=== PATIENT | female | born 1960 | race African-American/Black ===

== ENCOUNTER 2018-02-02 01:33 | Emergency (ER) | payer MEDICAID ==
[~2018-02-02] VITALS: Ht 157.5 cm; Wt 65.3 kg
[2018-02-02] MEDS ORDERED: ABILIFY20 MG PO (01:37)
[2018-02-02] MEDS ORDERED: [UNRECOGNIZED DRUG - REMARK] (01:38)
[2018-02-02] MEDS ORDERED: TRAZODONE 150150 M1 PO (01:38)
[2018-02-02] MEDS ORDERED: PROVENTIL HFA6.7 G1 INH (01:42)
[2018-02-02 02:07] VITALS: BP 137/86
== END 2018-02-02 02:09 | disposition home or self-care (01) ==
LOC: ER 01:33
DX: M54.5 Low back pain (principal); Z76.0 Encounter for issue of repeat prescription